=== PATIENT | female | born 1990 | race African-American/Black ===

== ENCOUNTER 2016-08-27 23:02 | Emergency (ER) | payer OTHER ==
--- NOTE | 2016-08-27 23:40 | ED Physician Documentation ---
Low Back Pain - HISTORIAN Historian: patient - HPI Chief Complaint: Low Back Pain/ Injury Onset: days ago (3) Duration: worse Context: lifting, turning Severity: severe Worsened By:: nothing Relieved By: nothing Further Comments: yes (25 year old female patient presents with complaints of low back pain x 3 days. no radiation. Reports back pain occurs yearly and is usually resolved with tylenol. Reports spasms, took flexeril at 1000, tylenol at 1730; no improvement in pain. Denies dysuria or fever, denies pain radiating down legs or into groin.) - ROS CONST: no problems CVS/RESP: none EYES/ENT: none MS/SKIN/LYMPH: back pain Neuro/Psych: none - PAST HX Past History: denies: back injury Other History: hypertension, other (post pardum depression, amemia, pre- eclampsia, seizures - on keppra) Allergies/Adverse Reactions: Allergies Allergy/AdvReac Type Severity Reaction Status Date / Time Penicillins Allergy Verified 08/27/16 23:20 tramadol Allergy Verified 08/27/16 23:20 Home Medications: Ambulatory Orders Medication Instructions Recorded Levetiracetam [Keppra XR] 500 mg PO BID 11/28/14 - SOCIAL HX Smoking History: non-smoker - FAMILY HX Family History: cardiac disease, other (renal calculi) - VITAL SIGNS Vital Signs: Vital Signs Temp Pulse Resp BP Pulse Ox 120/78 07/18/15 21:56 - REVIEWED ASSESSMENTS Nursing Assessment Reviewed: Yes Vitals Reviewed: Yes ED Results Lab/Radiology - Orders Orders: ED Orders Category Date Time Status UA W/MICRO IF INDICATED Stat Lab 08/27/16 23:30 Ordered Ketorolac Tromethamine [Toradol] Med 08/27/16 23:30 Discontinued 60 mg IM NOW ONE Orphenadrine Citrate [Norflex] Med 08/27/16 23:30 Discontinued 60 mg IM NOW ONE Low Back Pain/Injury - Physical Exam General Appearance: mild distress EENT: eye inspection normal, ZAIN Resp/CVS: chest non-tender, breath sounds nml, heart sounds nml, no resp. distress, lungs clear, reg. rate & rhythm Abdomen: non-tender, no organomegaly, no pulsatile mass Back: non-tender, painless ROM, muscle spasm, other (tenderness in bilateral lumbar paraspinous muscles. ). No: CVA tenderness Neuro/Psych: oriented x3, motor nml, sensation nml, bilat. doriflexion nml, reflexes nml, mood/affect nml Skin: normal color, warm/dry, NR, INT, PAL, DR Extremities: non-tender, normal range of motion, no evidence of injury, no edema , J, [facility] Discharge Clincal Impression: Acute back pain Qualifiers: Back pain location: low back pain Back pain laterality: bilateral Sciatica presence: without sciatica Qualified Code(s): M54.5 - Low back pain Referrals: Parker Lemos MD [Primary Care Provider] - 2 Days Home Medications: Ambulatory Orders Levetiracetam [Keppra XR] 500 mg PO BID 11/28/14 Condition: Stable Disposition: 01 HOME, SELF-CARE Decision to Admit: NO Decision Time: 23:43
[2016-08-27] MEDS: ORPHENADRINE CITRATE 60 MG/2ML IM ONE (23:50)
[2016-08-27] MEDS: KETOROLAC TROMETHAMINE 60 MG/2 ML VIAL IM ONE (23:51)
[2016-08-28 00:16] VITALS: BP 108/63
[2016-08-28 05:49] LABS: APPEARANCE,URINE CLOUDY (CLEAR); COLOR,URINE AMBER (YELLOW); OCCULT BLOOD,URINE TRACE-LYSED (NEGATIVE); PH URINE 5.5 (5.0 - 8.0)
== END 2016-08-27 23:55 | disposition home or self-care (01) ==
LOC: ED 23:02
DX: M54.5 Low back pain (principal)
CPT/HCPCS: J1885; J2360; 81002; 96372; 99283

== ENCOUNTER 2017-11-24 09:41 | Emergency (ER) | payer OTHER ==
[2017-11-24 09:57] VITALS: BP 111/74
--- NOTE | 2017-11-24 10:03 | ED Physician Documentation ---
Skin Rash - HPI Stated Complaint: ? spider bite Chief Complaint: Skin Rash Additional Information: Patient presents with a 24 hour history of elbow redness, pain and swelling. Patient states she was bitten by a spider yesterday at work. Today when she woke up her right posterior elbow was red, swollen and painful. She denies fever or chills. Her last menstratal period was in September. She is up to date on her tetanus. Onset: hours (24) Timing: worse Duration: worse Location: RUE Quality: painful Where: work Context: Medication Exposure: none Context: Food Exposure: none Context: Other Exposure: spider bite - ROS CONST: none CVS/RESP: none EYES/ENT: none GI/: none MS/SKIN/LYMPH: none NEURO/PSYCH: none - PAST HX Past History: none Other History: none Surgeries/Procedures: No Allergies/Adverse Reactions: Allergies Allergy/AdvReac Type Severity Reaction Status Date / Time Penicillins Allergy Verified 11/24/17 09:52 tramadol Allergy Verified 11/24/17 09:52 Home Medications: Ambulatory Orders Medication Instructions Recorded Cephalexin [Keflex] 500 mg PO Q8 7 Days #21 capsule 11/24/17 - SOCIAL HX Smoking History: cigarettes Alcohol Use: none Drug Use: none - FAMILY HX Family History: none - VITAL SIGNS Vital Signs: Vital Signs Temp Pulse Resp BP Pulse Ox 98.4 F 97 H 18 111/74 96 11/24/17 09:53 11/24/17 09:53 11/24/17 09:53 11/24/17 09:53 11/24/17 09:53 - REVIEWED ASSESSMENTS Nursing Assessment Reviewed: Yes Vitals Reviewed: Yes Progress - Results/Orders Results/Orders: HCG urine negative ED Results Lab/Radiology - Orders Orders: ED Orders Category Date Time Status URINE HCG [URINE HCG] Stat Lab 11/24/17 Uncollected Skin Rash Physical Exam - EXAM General Appearance: no acute distress Skin: warm,dry, other (8 cm round area of redness, enduration and warmth posterior right elbow. Tender) Location: other (right elbow) Character: symmetric Symptoms: warmth, tenderness, swelling Extremities: no edema EENT: eyes nml inspection Neck: trachea midline Respiratory: no resp distress, breath sounds normal CVS: reg. rate & rhythm, heart sounds nml Abdomen: non-tender, nml bowel sounds Neuro/Psych: oriented x3 Discharge Clincal Impression: Spider bite Qualifiers: Encounter type: initial encounter Injury intent: accidental or unintentional Qualified Code(s): T63.301A - Toxic effect of unspecified spider venom, accidental (unintentional), initial encounter Prescriptions: Cephalexin [Keflex] 500 mg PO Q8 7 Days #21 capsule Referrals: Cortes Barrett MD [Primary Care Provider] - 2 Days Decision to Admit: NO Date of Decison to Admit: 11/24/17 Decision Time: 10:10
== END 2017-11-24 10:20 ==
LOC: ED 09:41
DX: R60.0 Localized edema (principal); T63.301A Toxic effect of unspecified spider venom, accidental (unintentional), initial encounter; Y92.9 Unspecified place or not applicable; Y93.9 Activity, unspecified; Y99.9 Unspecified external cause status
CPT/HCPCS: 81025; 99283